=== PATIENT | female | born 1985 | race Caucasian/White ===

== ENCOUNTER 2017-06-04 05:38 | Emergency (ER) | payer OTHER ==
[~2017-06-04] VITALS: Ht 162.6 cm; Wt 76.1 kg
[2017-06-04 05:45] VITALS: Ht 162.6 cm; Wt 76.1 kg
[2017-06-04 07:37] LABS: URINE BLOOD (Dip) POC 1+ (NEGATIVE)
--- NOTE | 2017-06-04 08:22 | ERD ---
ER Documentation Chief Complaint Chief Complaint BIBA; PT TOOK HERBAL SUPPLEMENT YESTERDAY; C/O N/V/HEADACHE HPI 31-year-old female presents to the emergency department for nausea, vomiting, headache after taking a herbal supplement yesterday. Stated that she vomited with nonbilious nonbloody emesis once yesterday after intake of herbal supplement. She did not vomit today. She also reports that she is working as an senior gl accountant and sometimes she does not have enough sleep at night. Also added that she has a stressful job. Last menstrual period was 23 days ago. A0. Denies headache at this time, that this was the worst headache of her life, head trauma, changes in vision, throat pain, difficulty breathing when lying flat, difficulty swallowing, shoulder pain, chest pain, back pain, abdominal pain, constipation, diarrhea, loss of bowel and bladder control, urinary symptoms, vaginal bleeding, vaginal discharge, or possibility of being , difficulty walking, recent exposure to any illness, recent travel, recent long travel, recent antibiotic use in the last 3 months, fever, chills. Past medical history of polycystic kidney disease. No surgical history. No family history of stroke, heart attack before the age of 50. Works as an senior gl accountant. ROS All systems reviewed and are negative except as per history of present illness. Medications Home Meds Active Scripts Lorazepam* (Ativan*) 0.5 Mg Tablet, 0.5 MG PO Q8 Y for ANXIETY, #10 TAB Prov:PASILABAN,KLAR F 06/04/17 Diphenhydramine Hcl* (Benadryl*) 25 Mg Cap, 25 MG PO Q8 Y for ITCHING/RASH, #30 TAB Prov:PASILABAN,KLAR F 06/04/17 Allergies Allergies: Coded Allergies: No Known Allergy (Unverified , 06/04/17) PMhx/Soc Hx Miscellaneous Medical Probl: Yes (julee blanco) Hx Alcohol Use: No Hx Substance Use: No Hx Tobacco Use: No Physical Exam Vitals Vital Signs Date Time Temp Pulse Resp B/P Pulse Ox O2 Delivery O2 Flow Rate FiO2 06/04/17 05:45 96.6 96 20 137/81 100 Physical Exam Const: Well-appearing. Not in acute distress. Head: Atraumatic Eyes: Normal Conjunctiva ENT: Normal External Ears, Nose and Mouth. Neck: Full range of motion..~ No meningismus. Resp: Clear to auscultation bilaterally Cardio: Regular rate and rhythm, no murmurs Abd: Soft, non tender, non distended. Normal bowel sounds Skin: No petechiae or rashes Back: No midline or flank tenderness Ext: No cyanosis, or edema Neur: Awake and alert x4. No neurological deficits. Romberg test is negative. Psych: Normal Mood and Affect Results 24 hrs Laboratory Tests Test 06/04/17 07:37 Bedside Urine pH (LAB) 5.5 Bedside Urine Protein (LAB) Negative Bedside Urine Glucose (UA) Negative Bedside Urine Ketones (LAB) Negative Bedside Urine Blood 1+ Bedside Urine Nitrite (LAB) Negative Bedside Urine Leukocyte Esterase (L Negative Procedures/MDM POC urine : Negative. POC urine dipstick: Negative. I have low suspicion for subarachnoid hemorrhage, stroke given to the patient is well-appearing and is low risk, has no family history of stroke or heart attack before age 50, and she has no neurological deficits, her Romberg test is negative. I have low suspicion for hypertensive emergency given the patient's blood pressure at this time is unremarkable and patient has no headache, neck pain, chest pain. Final diagnosis: Medication reaction, stress. Prescription: Benadryl. Ativan. Follow-up with PCP in the next 3-4 days. Come back here in the emergency department for any new symptoms or any worsening symptoms. All questions and concerns are answered. Patient and family member verbalized understanding and agreed with the plan of care. Hemodynamically stable on discharge. Departure Diagnosis: Primary Impression: Medication reaction Condition: Stable Additional Instructions: Follow-up with PCP in the next 24-48 hours. Come back here in the emergency department for any new symptoms or any worsening of symptoms. All questions and concerns are answered. Patient and family member verbalized understanding and agreed with the plan of care. PARAMJIT VENTURA Jun 04, 2017 08:22
[2017-06-04] MEDS ORDERED: LORA-441 PO (08:26)
[2017-06-04] MEDS ORDERED: BEN25 PO (08:26)
== END 2017-06-04 09:00 | disposition home or self-care (01) ==
LOC: FTE 05:38
DX: R11.2 Nausea with vomiting, unspecified (principal); R51 Headache; T50.905A Adverse effect of unspecified drugs, medicaments and biological substances, initial encounter
CPT/HCPCS: 81003; Z7502; 99283